=== PATIENT | female | born 1945 | race Caucasian/White ===

== ENCOUNTER 2023-12-26 17:47 | Emergency (ER) | payer MEDICARE, OTHER ==
[~2023-12-26] VITALS: Ht 162.6 cm; Wt 81.0 kg
[~2023-12-26 17:47] MED LIST: ATOR40TA PO; CALC-1051 PO; CHOL100046 PO; ESTRADIOL CREAM TOP; LOSA25TA41 PO; LUTE20TA PO; MAXIVISION PO; PHEN30SP5 NS; SERT25TA PO; SYN0.0125T PO; VERA120T19 PO; VITC500T PO
[2023-12-26 18:11] VITALS: TEMP 97.8
[2023-12-26] MEDS: LIDOcaine 1% W/epiNEPHrine 1:200,000 10ml vial IJ ONE (19:35)
[2023-12-26] MEDS ORDERED: SULF1TAB45 PO (19:43)
[2023-12-26] MEDS: acetaminophen 325mg tablet PO ONE (20:08)
[2023-12-26] MEDS: oxymetazoline 15 ML nasal spray NS ONE (20:10)
[2023-12-26] MEDS: TETanus/Pertussis (Acell)/Diphther VAC/PF (Tdap-Adult) 0.5ml syringe IMVAC ONE (20:20)
[2023-12-26] MEDS: LIDOcaine 1% W/epiNEPHrine 1:100,000 20ml vial IJ ONE (20:51)
[2023-12-26 21:21] VITALS: BP 157/83; PULSE 68; O2SAT 94
[2023-12-26 21:22] VITALS: RESP 16
== END 2023-12-26 22:41 | disposition home or self-care (01) ==
LOC: ER 17:47
DX: S02.2XXA Fracture of nasal bones, initial encounter for closed fracture (principal); S01.21XA Laceration without foreign body of nose, initial encounter; S80.01XA Contusion of right knee, initial encounter; K21.9 Gastro-esophageal reflux disease without esophagitis; I10 Essential (primary) hypertension; Z88.1 Allergy status to other antibiotic agents; Z88.8 Allergy status to other drugs, medicaments and biological substances; W19.XXXA Unspecified fall, initial encounter; Y93.89 Activity, other specified; Y92.89 Other specified places as the place of occurrence of the external cause; Y99.8 Other external cause status
CPT/HCPCS: 70450; 70486; 72125; 90471; 90715; 99285

== ENCOUNTER 2024-12-17 08:52 | Outpatient (CLI) | payer MEDICARE, OTHER | END 2024-12-17 23:59 | disposition home or self-care (01) | LOC: MRI 08:52 | PROVIDERS: ATTEND Family Medicine | DX: M75.101 Unspecified rotator cuff tear or rupture of right shoulder, not specified as traumatic (principal); M89.311 Hypertrophy of bone, right shoulder; M25.411 Effusion, right shoulder | CPT/HCPCS: 73030; 73221 ==